=== PATIENT | female | born 1960 | race Caucasian/White ===

== ENCOUNTER 2021-05-03 11:30 | Emergency (ER) | payer BC ==
[~2021-05-03] VITALS: Ht 172.7 cm; Wt 68.0 kg
[2021-05-03 13:01] VITALS: BP 145/92
--- NOTE | 2021-05-03 13:08 | PHYS DOC ---
General Adult EDM: Chief Complaint: COUGH HPI: HPI: Patient is a 61 year old female who presents the ED today requesting her oxygen saturation to be checked. Patient was diagnosed with COVID-19 on Tuesday last week. She states she still has a cough but just wanted her oxygen checked so she can drive to [place] when she came from. Her is admitted to this hospital for Covid. Review of Systems: Review of Systems: Constitutional: Denies fever or chills. [] Eyes: Denies change in visual acuity. [] HENT: Denies nasal congestion or sore throat. [] Respiratory: Reports cough advance her oxygen check, denies shortness of breath. [] Cardiovascular: Denies chest pain or edema. [] GI: Denies abdominal pain, nausea, vomiting, bloody stools or diarrhea. [] : Denies dysuria. [] Musculoskeletal: Denies back pain or joint pain. [] Integument: Denies rash. [] Neurologic: Denies headache, focal weakness or sensory changes. [] Psychiatric: Denies depression or anxiety. [] Heart Score: C/O Chest Pain: N/A Risk Factors: Risk Factors: DM, Current or recent (<one month) smoker, HTN, HLP, family history of CAD, obesity. Risk Scores: Score 0 - 3: 2.5% MACE over next 6 weeks - Discharge Home Score 4 - 6: 20.3% MACE over next 6 weeks - Admit for Clinical Observation Score 7 - 10: 72.7% MACE over next 6 weeks - Early Invasive Strategies Physical Exam: PE: Constitutional: Well developed, well nourished, no acute distress, non-toxic appearance. [] HENT: Normocephalic, atraumatic, bilateral external ears normal, oropharynx moist, no oral exudates, nose normal. [] Eyes: PERRLA, EOMI, conjunctiva normal, no discharge. [] Neck: Normal range of motion, no tenderness, supple, no stridor. [] Cardiovascular:Heart rate regular rhythm, no murmur [] Lungs & Thorax: Bilateral breath sounds clear to auscultation [] Abdomen: Bowel sounds normal, soft, no tenderness, no masses, no pulsatile masses. [] Skin: Warm, dry, no erythema, no rash. [] Back: No tenderness, no CVA tenderness. [] Extremities: No tenderness, no cyanosis, no clubbing, ROM intact, no edema. [] Neurologic: Alert and oriented X 3, normal motor function, normal sensory function, no focal deficits noted. [] Psychologic: Affect normal, judgement normal, mood normal. [] EKG: EKG: [] Radiology/Procedures: Radiology/Procedures: [] Course & Med Decision Making: Course & Med Decision Making Pertinent Labs and Imaging studies reviewed. (See chart for details) This is a 61-year-old female patient positive for Covid wanting her oxygen saturation checked before she leaves. is admitted in the hospital for Covid. Patient's oxygen saturation is 98% on room air. She was reassured. She left [employer] Disclaimer: [employer] Disclaimer: This electronic medical record was generated, in whole or in part, using a voice recognition dictation system. Departure Departure Impression: Primary Impression: Cough Additional Impression: Lab test positive for detection of COVID-19 virus Disposition: HOME / SELF CARE / HOMELESS Condition: STABLE Referrals: NON,STAFF (PCP) follow up in 1 week with your doctor Patient Instructions: Cough, Adult, [id number] Additional Instructions: Your oxygen in the emergency room was 98% on room air this is normal and very good. You can buy a pulse oximetry at the store and this will measure your oxygen at home. Please wear your mask in public. Please push fluids. Take Tylenol or Motrin for pain or fever. Come back to any emergency room at any point symptoms worsen DENNIS ERIC APRN May 03, 2021 13:07
== END 2021-05-03 13:22 | disposition home or self-care (01) ==
LOC: ER 11:30
DX: R05 Cough (principal)
CPT/HCPCS: 99282